=== PATIENT | female | born 1990 ===

== ENCOUNTER 2018-09-15 21:35 | Emergency (ER) | payer OTHER ==
[2018-09-15] MEDS ORDERED: Albuterol-Ipratrop 3 mg / 0.5 (3 ml) UD INH STA (21:52)
[2018-09-15] MEDS ORDERED: Albuterol-Ipratrop 3 mg / 0.5 (3 ml) UD IH STA (21:54)
[2018-09-15] MEDS ORDERED: Albuterol-Ipratrop 3 mg / 0.5 (3 ml) UD ONE (22:07)
--- NOTE | 2018-09-15 22:08 | ED PDOC ---
HPI: SOB/CHF/COPD Time Seen by Provider: 09/15/18 21:48 Chief Complaint (Nursing): Cough, Cold, Congestion Chief Complaint (Provider): Shortness of Breath History Per: Patient History/Exam Limitations: no limitations Onset/Duration Of Symptoms: Hrs (x8) Current Symptoms Are (Timing): Still Present Quality: Tightness Current Respiratory Medications: Albuterol Associated Symptoms: Chest Pain (chest tightness), Productive Cough (yellow/green sputum) Additional Complaint(s): 28 y/o female with a PMHx of asthma presents to the ED complaining of shortness of breath, onset 8 hours ago. Patient reports shortness of breath is associated with chest tightness, productive cough with yellow/green phlegm, congestion and rhinorrhea. Patient reports of being hesitant to using her albuterol pump due to being about 10 weeks . However, approximately 4 hours ago patient decided to use her albuterol pump because of symptom severity with no relief thus prompting today's visit. Denies nausea, vomiting and diarrhea. No leg pain. No long distance travel. Past Medical History Reviewed: Historical Data, Nursing Documentation, Vital Signs Vital Signs: Last Vital Signs Temp 97.6 F 09/15/18 21:46 Pulse 93 H 09/15/18 21:46 Resp 22 09/15/18 21:46 BP 121/60 09/15/18 21:46 Pulse Ox 97 09/15/18 21:46 - Medical History PMH: Asthma - Surgical History Surgical History: No Surg Hx - Family History Family History: States: Unknown Family Hx - Social History Current smoker - smoking cessation education provided: No Alcohol: None Drugs: Denies - Home Medications Home Medications: Ambulatory Orders Medication Instructions Recorded Albuterol Sulfate [Proair Hfa] 0.09 mg IH Q6H PRN #2 inh 09/15/18 predniSONE [predniSONE Tab] 20 mg PO BID 5 Days tab 09/15/18 - Allergies Allergies/Adverse Reactions: Allergies Allergy/AdvReac Type Severity Reaction Status Date / Time No Known Allergies Allergy Verified 09/15/18 21:46 Review of Systems ROS Statement: Except As Marked, All Systems Reviewed And Found Negative ENT: Positive for: Nose Discharge, Nose Congestion Cardiovascular: Positive for: Chest Pain (chest tightness) Respiratory: Positive for: Cough (productive with yellow/green phlegm), Shortness of Breath Gastrointestinal: Negative for: Nausea, Vomiting, Diarrhea Physical Exam - Reviewed Nursing Documentation Reviewed: Yes Vital Signs Reviewed: Yes - Physical Exam Appears: Positive for: Uncomfortable Head Exam: Positive for: ATRAUMATIC, NORMOCEPHALIC Skin: Positive for: Normal Color, Warm, Dry Eye Exam: Positive for: Normal appearance, EOMI ENT: Positive for: Pharynx Is (clear), Nasal Congestion Neck: Positive for: Normal, Painless ROM Cardiovascular/Chest: Positive for: Regular Rate, Rhythm. Negative for: Murmur Respiratory: Positive for: Decreased Breath Sounds, Wheezing (Diffuse). Negative for: Accessory Muscle Use Gastrointestinal/Abdominal: Positive for: Soft. Negative for: Tenderness Back: Positive for: Normal Inspection. Negative for: L CVA Tenderness, R CVA Tenderness Extremity: Positive for: Normal ROM. Negative for: Pedal Edema, Deformity Neurologic/Psych: Positive for: Alert, Oriented (x3) - ECG O2 Sat by Pulse Oximetry: 97 (RA) Pulse Ox Interpretation: Normal - Progress ED Course And Treament: 1111: Feels much better. AAOx3. Pain free. Tolerated po. Fu with pcp. Medical Decision Making Medical Decision Making: Time: 2153 Plan: -- Duoneb 3mg/0.5mg (3ml) UD 3ml INH -- Duoneb 3mg/0.5mg (3ml) UD 3ml INH -- PredniSONE 60 mg PO -- Peak Flow Pre/Post Tx -- Influenza A B Scribe Attestation: Documented by Epifanio Blair, acting as a scribe for Carlos Singh MD. Provider Scribe Attestation: All medical record entries made by the Scribe were at my direction and personally dictated by me. I have reviewed the chart and agree that the record accurately reflects my personal performance of the history, physical exam, medi johnny decision making, and the department course for this patient. I have also personally directed, reviewed, and agree with the discharge instructions and disposition. Disposition - Clinical Impression Clinical Impression: Asthma exacerbation - Patient ED Disposition Is Patient to be Admitted: No Counseled Patient/Family Regarding: Diagnosis, Need For Followup, Rx Given - Disposition Referrals: [facility] [Outside] - 09/18/18 Disposition: Routine/Home Disposition Time: 23:12 Condition: STABLE Additional Instructions: Return if not better in 3 days. Prescriptions: Albuterol Sulfate [Proair Hfa] 0.09 mg IH Q6H PRN #2 inh PRN Reason: Wheezing predniSONE [predniSONE Tab] 20 mg PO BID 5 Days tab Instructions: Asthma in Adults Forms: [facility] (Iraqi)
[2018-09-15 23:47] VITALS: BP 125/88; PULSE 96; RESP 16; TEMP 98.4; O2SAT 99
--- NOTE | 2018-09-16 18:35 | CARD ---
APPROVED REPORT Date of service: 09/15/2018 EKG Measurement Heart [id number] <Conclusion> Normal sinus rhythm Normal ECG
== END 2018-09-15 23:47 | disposition home or self-care (01) ==
LOC: H.ER 21:35
DX: J45.901 Unspecified asthma with (acute) exacerbation (principal)